=== PATIENT | female | born 2000 | race Caucasian/White ===

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

== ENCOUNTER 2020-03-27 22:34 | Emergency (ER) | payer MEDICAID, OTHER ==
[~2020-03-27] VITALS: Ht 165.1 cm; Wt 62.6 kg
--- NOTE | 2020-03-27 23:11 | NUR ---
PT AMBULATED TO ROOM WITH NO ASSISTANCE. VSS. PT IN NAD. PA AT BEDSIDE
--- NOTE | 2020-03-27 23:31 | NUR ---
PT TO CT
[2020-03-27 23:37] LABS: BASOPHILS # (AUTO) 0.02 x10^3/uL (0-0.3); BASOPHILS % (AUTO) 0 % (0-1); EOSINOPHILS # (AUTO) 0.26 x10^3/uL (0-0.8); EOSINOPHILS % (AUTO) 4 % (1-7); LYMPHOCYTES # (AUTO) 2.31 x10^3/uL (1-6.1); LYMPHOCYTES % (AUTO) 31 % (22-44); MD NO; MEAN CORPUSCULAR HEMOGLOBIN 29.4 pg (27.0-34.8); MEAN CORPUSCULAR HGB CONC 32.8 g/dL (32.4-35.8); MEAN CORPUSCULAR VOLUME 89.6 fL (80-100); MEAN PLATELET VOLUME 8.1 fL (7.4-10.4); MONOCYTES # (AUTO) 0.54 x10^3/uL (0-1.4); MONOCYTES % (AUTO) 7 % (2-9); NEUTROPHILS % (AUTO) 59 % (42-75); PLATELET COUNT 288 x10^3/uL (130-400); RED BLOOD COUNT 4.73 x10^6/uL (3.82-5.3); RED CELL DISTRIBUTION WIDTH 13.3 % (9.6-15.2)
[2020-03-27 23:45] LABS: ALANINE AMINOTRANSFERASE 23 U/L (12-78); ALBUMIN 4.2 g/dL (3.4-5.0); ANION GAP 5 mmol/L (5-15); CHLORIDE 107 mmol/L (98-107); CREATININE 1.01 mg/dL (0.55-1.02)
[2020-03-27 23:48] LABS: ALKALINE PHOSPHATASE 84 U/L (45-117); BILIRUBIN,TOTAL 0.9 mg/dL (0.2-1.0); TOTAL PROTEIN 7.9 g/dL (6.4-8.2)
[2020-03-28 01:46] VITALS: BP 113/69
== END 2020-03-28 01:50 | disposition home or self-care (01) ==
LOC: ED 23:42
DX: R55 Syncope and collapse (principal); I44.5 Left posterior fascicular block; R42 Dizziness and giddiness; R11.2 Nausea with vomiting, unspecified; R07.9 Chest pain, unspecified
CPT/HCPCS: 36415; 70450; 71045; 80053; 84703; 85025; 93005; 99285

== ENCOUNTER 2020-08-31 08:20 | Emergency (ER) | payer MEDICAID ==
[~2020-08-31] VITALS: Ht 162.6 cm; Wt 65.0 kg
--- NOTE | 2020-08-31 08:33 | NUR ---
ERP AT BEDSIDE.
--- NOTE | 2020-08-31 08:53 | NUR ---
THIS RN AT BEDSIDE WITH DR. DONATO FOR PELVIC EXAM. PT TOLERATED WELL.
[2020-08-31] MEDS ORDERED: CEFTRIAXONE 250 MG IM ONE (09:00)
[2020-08-31] MEDS ORDERED: AZITHROMYCIN 500 MG TABLET PO ONE (09:00)
[2020-08-31 09:01] LABS: BASOPHILS % (AUTO) 1 % (0-1); EOSINOPHILS % (AUTO) 3 % (1-7); LYMPHOCYTES % (AUTO) 46 % (22-44); MEAN CORPUSCULAR HEMOGLOBIN 29.9 pg (27.0-34.8); MEAN CORPUSCULAR HGB CONC 33.3 g/dL (32.4-35.8); MEAN PLATELET VOLUME 7.6 fL (7.4-10.4); MONOCYTES % (AUTO) 11 % (2-9); NEUTROPHILS % (AUTO) 40 % (42-75); PLATELET COUNT 253 x10^3/uL (130-400); RED BLOOD COUNT 4.55 x10^6/uL (3.82-5.3); RED CELL DISTRIBUTION WIDTH 13.6 % (9.6-15.2)
[2020-08-31] MEDS ORDERED: AZITHROMYCIN 250 MG TABLET ONE (09:01)
[2020-08-31] MEDS ORDERED: CEFTRIAXONE 250 MG ONE (09:01)
[2020-08-31 09:08] LABS: MD NO
[2020-08-31 09:10] LABS: ANION GAP 7 mmol/L (5-15); CALCIUM 8.9 mg/dL (8.5-10.1); CHLORIDE 112 mmol/L (98-107)
--- NOTE | 2020-08-31 09:15 | NUR ---
PT TO BATHROOM WITH THIS RN TO PROVIDE URINE SAMPLE. STEADY GAIT. PT RETURNED TO ROOM ND MEDICATED PER EMAR. NO NEEDS AT THIS TIME. CALL LIGHT AND PERSONAL BELONGINGS WITHIN REACH.
[2020-08-31 09:52] LABS: MICROSCOPIC AUTO
--- NOTE | 2020-08-31 10:00 | NUR ---
Bedside report to Michell METZGER
--- NOTE | 2020-08-31 10:30 | NUR ---
Pt to US.
[2020-08-31 10:34] LABS: CLUE CELLS NONE SEEN (NONE SEEN); WET PREP WBCS MANY (FEW)
[2020-08-31 10:58] VITALS: BP 112/68
--- NOTE | 2020-08-31 10:58 | NUR ---
Patient given discharge instructions and they have confirmed that they understand the instructions. Patient ambulatory with steady gait.
== END 2020-08-31 11:00 | disposition home or self-care (01) ==
LOC: ED 08:54
DX: N30.00 Acute cystitis without hematuria (principal); N89.8 Other specified noninflammatory disorders of vagina
CPT/HCPCS: 36415; 76830; 80048; 81001; 82040; 84703; 85025; 87086; 87210; 87491; 87591; 87808; 96372; 99284; J0696